=== PATIENT | male | born 1995 | race Caucasian/White ===

== ENCOUNTER 2021-11-17 11:54 | Emergency (ER) | payer SELFPAY ==
[2021-11-17] MEDS ORDERED: cefTRIAXone\\ROCEPHIN 500 MG VIAL ONE (12:40)
[2021-11-17] MEDS ORDERED: Azithromycin 250 MG TAB ONE (12:40)
[2021-11-17] MEDS ORDERED: Lidocaine 1% PF 5 ML VIAL ONE (12:40)
[2021-11-17 12:55] LABS: Bilirubin Negative (Negative); Blood, Urine Negative (Negative); Clarity Clear (Clear); Glucose, Urine (Dipstick) Normal (Negative); Ketone, Urine Negative (Negative); Leukocyte Negative Leu/uL (Negative); Nitrite Negative (Negative); Protein, Urine (Dipstick) Negative (Neg-Trace); Specific Gravity, Urine 1.002 (1.002-1.036); Urobilinogen Normal mg/dL (Less than 2); pH, Urine 6.5 (5.0-9.0)
[2021-11-17 18:27] LABS: Chlam.trachomatis by PCR,Urine Not Detected (NotDetected)
== END 2021-11-17 13:06 | disposition home or self-care (01) ==
LOC: ERS 11:54
DX: K62.89 Other specified diseases of anus and rectum (principal)
CPT/HCPCS: 81003; 87491; 87591; 96372; 99283; J0696